=== PATIENT | male | born 1985 | race Caucasian/White ===

== ENCOUNTER 2020-02-08 09:07 | Emergency (ER) | payer SELFPAY ==
[~2020-02-08] VITALS: Ht 190.2 cm; Wt 104.0 kg
[2020-02-08 09:15] VITALS: BP 162/86
--- NOTE | 2020-02-08 09:49 | ED Integumentary General ---
General Chief Complaint: Skin/Wound Problems Stated Complaint: SPIDER BITE ON RT LEG Source: patient Exam Limitations: no limitations History of Present Illness Date Seen by Provider: Feb 08, 2020 Time Seen by Provider: 09:40 Initial Comments Patient is a 34-year-old male who presents to the emergency department today with a chief complaint of wounds to his right lower extremity. Patient states that he thought they might be "spider bites". He has had them for several days. Patient was just released from group home after having been incarcerated for approximately 7 to 8 months. Patient denies any trauma to the area. He states they have been draining significant amounts of fluid/pus. The largest one on the anterior right mack came up "overnight" he states. He denies any fevers, chills, other systemic symptoms. No GI or complaints. He is not a diabetic. He does admit to some methamphetamine use. He states he eats methamphetamine. Denies any injection or smoking of methamphetamine. All other review of systems reviewed and negative except as stated. Timing/Duration: week, getting worse Severity: moderate Location: extremities (Right lower extremity) Associated Symptoms: blisters, change in skin texture Allergies and Home Medications Allergies Coded Allergies: No Known Drug Allergies (Unverified , 02/08/20) Home Medications Sulfamethoxazole/Trimethoprim 1 Each Tablet, 1 EACH PO BID Prescribed by: MELODY CASTELLANOS on 02/08/20 0950 Patient Home Medication List Home Medication List Reviewed: Yes Review of Systems Review of Systems Constitutional: no symptoms reported EENTM: no symptoms reported Respiratory: no symptoms reported Cardiovascular: no symptoms reported Gastrointestinal: no symptoms reported Genitourinary: no symptoms reported Musculoskeletal: no symptoms reported Skin: other (Abscesses to the right lower extremity) Physical Exam Vital Signs Vital Signs - First Documented 02/08/20 09:15 Temp 36.1 Pulse 109 Resp 18 B/P (MAP) 162/86 (111) Pulse Ox 98 O2 Delivery Room Air Capillary Refill : General Appearance: WD/WN, no apparent distress HEENT: PERRL/EOMI Neck: full range of motion Cardiovascular: regular rate, rhythm Respiratory: normal breath sounds, no respiratory distress Extremities: normal range of motion, non-tender, no pedal edema Neurologic/Psychiatric: no motor/sensory deficits, alert, normal mood/affect Skin: normal color, warm/dry, other (3 areas of abscess noted to the right lower extremity. 1 on the anterior right mack approximately 2-1/2 cm in diameter actively draining pus, 1 on the lateral right lower extremity crusted over with a small amount of pus this 1 is 2 cm in diameter; third lesion medial right anterior mack also with an eschar over it and small amounts of drainage) Progress/Results/Core Measures Results/Orders My Orders Orders - MELODY CASTELLANOS MD Wound Culture (02/08/20 09:54) Vital Signs/I&O 02/08/20 09:15 Temp 36.1 Pulse 109 Resp 18 B/P (MAP) 162/86 (111) Pulse Ox 98 O2 Delivery Room Air Departure Impression Primary Impression: Cutaneous abscess of right lower extremity Disposition: HOME, SELF-CARE Condition: Stable Departure-Patient Inst. Decision time for Depature: 09:48 Referrals: [facility] [place]YSIC[place] (PCP) Primary Care Physician Patient Instructions: Methicillin-Resistant Staphylococcus aureus (MRSA), Wound Care (DC) Add. Discharge Instructions: Wash the areas at least twice daily with warm soapy water. Cover the lesions with Neosporin and a dry gauze dressing. Take the antibiotics as prescribed for 10 days. Return to the emergency department for any worsening symptoms, red streaks on the leg, swelling, increased drainage, fever or other concerning symptoms. Please follow-up with the primary care physician. Scripts Sulfamethoxazole/Trimethoprim (Bactrim Ds Tablet) 1 Each Tablet 1 EACH PO BID for 10 Days, #20 TAB Prov: MELODY CASTELLANOS MD 02/08/20 MELODY CASTELLANOS MD Feb 08, 2020 09:49
[2020-02-08] MEDS ORDERED: SULF1TAB35 PO ×2 (09:50→17:20)
== END 2020-02-08 09:50 | disposition home or self-care (01) ==
LOC: ER FS 09:09
DX: L02.415 Cutaneous abscess of right lower limb (principal)
CPT/HCPCS: 87070; 87077; 87205; 99282